=== PATIENT | male | born 1955 | race Caucasian/White ===

== ENCOUNTER 2019-06-16 13:03 | Emergency (ER) | payer BC, OTHER ==
[~2019-06-16] VITALS: Ht 170.2 cm; Wt 97.0 kg
[~2019-06-16 13:03] MED LIST: ACET500C5 PO; AMLO5TAB4 PO; CEPH-443 PO; SERT-165 PO; TRAZ-150 PO; VIT1TABL46 PO
[2019-06-16 13:31] VITALS: Ht 170.2 cm; Wt 97.0 kg
[2019-06-16] MEDS ORDERED: NICARDipine HCL 30 MG CAPSULE PO ONE (15:00)
[2019-06-16] MEDS ORDERED: LABETALOL HCL 20MG INJ IV ONE (16:30)
[2019-06-16 17:19] VITALS: BP 179/94; PULSE 75; RESP 18
== END 2019-06-16 17:21 | disposition home or self-care (01) ==
LOC: E/R 13:03
DX: I16.0 Hypertensive urgency (principal); I10 Essential (primary) hypertension; R51 Headache
CPT/HCPCS: 36415; 70450; 80048; 85025; 85610; 85730; 86850; 86900; 86901; 93005; 96374